=== PATIENT | female | born 1960 | race Caucasian/White ===

== ENCOUNTER 2017-07-04 06:55 | Day surgery (SDC) | payer BC ==
[~2017-07-04] VITALS: Ht 160 cm; Wt 68.0 kg
--- NOTE | 2017-07-04 08:32 | Operative Note ---
Upper GI Endoscopy Procedure date: 07/04/17 Date of : 60 Procedure:Upper GI Endoscopy Esophagogastroduodenoscopy with cold biopsies and TTS balloon dilation Indications: Mrs. Lima is a 56-year-old female with iron deficiency anemia. This was diagnosed approximately 1 month ago at the time that she was diagnosed with lupus. The patient does have globus sensation. She does have a history of gastroesophageal reflux disease and was on omeprazole which was weaned off after she was found to have a compression fracture. This was primarily due to the association of PPI therapy and osteopenia. Now, she takes Tums when necessary. The patient has been on aspirin for 1 week and ibuprofen for the last month. She is not on any anticoagulation. She reports no rectal bleeding or melena. She reports no bloating, gassiness, indigestion or abdominal pain. She does have a history of constipation but is now more regular. She did undergo colonoscopy in September 2014 in [place] at which time a couple of polyps were removed and she had diverticulosis. Performing Provider: Jason Graham MD Referring Provider: Reanna Andersen M.D. Sedation: MAC sedation Procedure: Prior to the procedure, a history and physical exam was performed, and patients medications and allergies were reviewed. The risks and benefits of the procedure and the sedation options and risks were discussed with the patient. All questions were answered and informed consent was obtained. The patient was brought to the procedure room. Patient identification and proposed procedure were verified by the physician and the nurse. The patient was placed in a left lateral decubitus position and the scope was passed under direct vision. Throughout the procedure, the patient's blood pressure, pulse, and oxygen saturations were monitored continuously. The endoscope was introduced through the mouth, and advanced to the second part of duodenum. The upper GI endoscopy was accomplished without difficulty. The patient tolerated the procedure well. Findings: The scope was passed directly into the upper esophagus and advanced to the third portion of the duodenum. The post bulbar duodenum and duodenal bulb were normal with normal mucosa and conniventes. There were no scalloped folds but 4 biopsies were obtained to rule out celiac disease. The scope was withdrawn through a normal duodenal bulb and pylorus into the stomach. There was some bile reflux with minimal reactive gastritis. The remainder of the antrum, body and fundus of the stomach were grossly normal. Upon retroflexion there was a small 2 cm hiatal hernia. 2 biopsies were taken in the antrum and along the lesser curvature for histology. The scope was then withdrawn into the esophagus. There was no evidence of reflux esophagitis or Gutierrez's. There were distal grade 1 esophageal varices that were faint. There were tertiary contractions and mild esophageal dysmotility. The entire esophagus was dilated to 60 Faroese/20 mm with a TTS hydrostatic balloon. 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 The remainder of the esophageal mucosa was normal. Immediate complications: None EBL (ml): 0 Impression: 1. Nonerosive gastroesophageal reflux disease with esophageal dysmotility, cricopharyngeal (UES upper esophageal sphincter) spasm status post dilation to 20 mm 2. Faint grade 1 esophageal varices 3. Small 2 cm hiatal hernia 4. Bile reflux with minimal linear reactive gastritis Recommendations: There was no clear source of bleeding. I would obtain Hemoccult testing. If the patient has strongly Hemoccult-positive, I would recommend repeat colonoscopy and possibly video capsule enteroscopy. The patient does have some cricopharyngeal spasm causing her globus sensation. She has some functional gastroesophageal reflux disease. We will discuss treatment options. Lastly, there were faint esophageal varices. Will obtain hepatic fibrotic markers and inquire about prior liver chemistries. She does have lupus and may have autoimmune liver disease. I will check serologies. at [id number]
[2017-07-04 10:24] LABS: HEMOGLOBIN 9.4 g/dL (12.2-16.2); LYMPH # 0.5 K/mm3 (0.7-4.5); LYMPH % 11.1 % (10-50.0)
[2017-07-04 10:39] VITALS: BP 110/73
[2017-07-05 08:44] LABS: Alpha-1-Antitrypsin 215 mg/dL (90-200); Immunoglobulin A, Qn 409 mg/dL (87-352); Immunoglobulin G, Qn 1569 mg/dL (700-1600); Immunoglobulin M, Qn 70 mg/dL (26-217)
[2017-07-05 09:38] LABS: HBsAg Screen Negative (Negative); Hep A Ab, IgM Negative (Negative); Hep A Ab, Total Positive (Negative); Hep B Core Ab, IgM Negative (Negative); Hep B Core Ab, Tot Negative (Negative); Hep B Surface Ab, Qual Reactive (.); Hep C Virus Ab <0.1 (0.0-0.9); Vitamin B12 1221 pg/mL (211-946)
[2017-07-05 14:38] LABS: Actin (Smooth Muscle) Antibody 15 Units (0-19); Liver-Kidney Microsomal Ab <1.0 Units (0.0-20.0); Mitochondrial (M2) Antibody <20.0 Units (0.0-20.0)
[2017-07-05 16:37] LABS: ACE 40 U/L (14-82)
[2017-07-06 08:51] LABS: ALT (SGPT) P5P 33 IU/L (0-40); Alpha 2-Macroglobulins, Qn 148 mg/dL (110-276); Apolipoprotein A-1 98 mg/dL (116-209); Bilirubin, Total 0.2 mg/dL (0.0-1.2); Fibrosis Score 0.12 (0.00-0.21); GGT 83 IU/L (0-60); Haptoglobin 250 mg/dL (34-200); Necroinflammat Activity Grade A0-No activity (.); Necroinflammat Activity Score 0.13 (0.00-0.17)
== END 2017-07-04 10:27 | disposition home or self-care (01) ==
LOC: SDC 06:55
PROVIDERS: Internal Medicine Gastroenterology
PROC: 0DB78ZX Excision of Stomach, Pylorus, Via Natural or Artificial Opening Endoscopic, Diagnostic (ICD-10-PCS; 2017-07-04)
PROC: 0DB68ZX Excision of Stomach, Via Natural or Artificial Opening Endoscopic, Diagnostic (ICD-10-PCS; 2017-07-04)
PROC: 0D718ZZ Dilation of Upper Esophagus, Via Natural or Artificial Opening Endoscopic (ICD-10-PCS; 2017-07-04)
PROC: 0DB98ZX Excision of Duodenum, Via Natural or Artificial Opening Endoscopic, Diagnostic (ICD-10-PCS; principal; 2017-07-04 08:00)
DX: D50.9 Iron deficiency anemia, unspecified (principal); K21.9 Gastro-esophageal reflux disease without esophagitis; M35.9 Systemic involvement of connective tissue, unspecified; I85.00 Esophageal varices without bleeding; K22.4 Dyskinesia of esophagus; K29.50 Unspecified chronic gastritis without bleeding; K44.9 Diaphragmatic hernia without obstruction or gangrene; K76.6 Portal hypertension; R79.89 Other specified abnormal findings of blood chemistry; Z79.82 Long term (current) use of aspirin; Z79.899 Other long term (current) drug therapy
CPT/HCPCS: C1726